=== PATIENT | female | born 1985 | race Caucasian/White ===

== ENCOUNTER 2019-07-09 10:00 | Emergency (ER) | payer BC, SELFPAY ==
--- NOTE | 2019-07-09 10:09 | ED.URI ---
HPI - URI/Sore Throat General Chief Complaint: Upper Respiratory Infection Stated Complaint: cough/congestion/fever Time Seen by Provider: 07/09/19 10:22 Source: patient and RN notes reviewed Mode of arrival: ambulatory Limitations: no limitations History of Present Illness HPI Narrative: 33 of female presents with concern for body aches, fever, cough, chest congestion, headache. Reports fever started yesterday. MD elicited complaint: fever Related Data Allergies Allergy/AdvReac Type Severity Reaction Status Date / Time No Known Allergies Allergy Verified 07/09/19 10:19 Review of Systems Review of Systems: Narrative: CONSTITUTIONAL: Reports malaise, chills, sweats, fever. EYES: Denies visual changes, redness, or discharge. ENT: Reports rhinorrhea. Denies congestion, sinus pain, otalgia and sore throat. CARDIOVASCULAR: Denies chest pain, palpitations, or edema. RESPIRATORY: Reports cough, chest congestion. Denies dyspnea. GASTROINTESTINAL: Denies abdominal pain, nausea, vomiting, diarrhea SKIN: Denies rash or itching. MUSCULOSKELETAL: Reports myalgia. NEUROLOGIC: Reports headache. All systems reviewed & are unremarkable except as noted in HPI and below PMFSH Social History Social History Smoking status: Never smoker Alcohol intake: current Comments At time of signature, agree with nursing past medical, surgical, social and family history. There is no relevant family history pertinent to the presenting complaint Exam Narrative: Exam Narrative: GENERAL: Nontoxic-appearing, well-nourished, and in no acute distress. HEAD: Normocephalic EYES: PERRLA, conjunctivae clear ENT: Nares clear, turbinates erythematous, clear discharge. Mucous membranes moist. TM pearly voss with dull light reflex bilaterally; no tragal tenderness. Oropharynx not erythematous without lesions. Tonsils not enlarged and without exudate, no drooling, no hoarseness, no trismus. NECK: Supple. No lymphadenopathy CHEST: Clear to auscultation, breath sounds equal. No wheezing, rhonchi, rales, or stridor. No respiratory distress, speaks in full sentences. cough noted HEART: Regular rate and rhythm. No murmur heard. Normal peripheral pulses. SKIN: Warm, dry, no rash. NEURO: Alert and oriented x3. PSYCH: Normal mood and affect Course Course Emergency Course: Patient is aware of diagnosis, understands and agrees to treatment plan. Anticipatory guidance given. Patient agrees to follow-up as directed and is aware of reasons to seek care at the emergency department. Portions of this record may have been created with voice recognition software Vital Signs Vital signs: Vital Signs Temperature 101.1 F H 07/09/19 10:15 Pulse Rate 91 07/09/19 10:15 Respiratory Rate 20 07/09/19 10:15 Blood Pressure 126/81 07/09/19 10:15 Pulse Oximetry 99 07/09/19 10:15 Temperature 101.1 F H 07/09/19 10:15 Pulse Rate 91 07/09/19 10:15 Respiratory Rate 20 07/09/19 10:15 Blood Pressure 126/81 07/09/19 10:15 Pulse Oximetry 99 07/09/19 10:15 Reviewed. Patient has been instructed to follow up with her primary care provider within the next week regarding her elevated blood pressure today. MDM - URI/Sore Throat MDM Narrative Medical decision making narrative: Differential diagnosis considered: Strep pharyngitis, allergic rhinitis, upper respiratory tract infection, sinusitis, rhinosinusitis, nasopharyngitis. viral pharyngitis, otitis media, otitis externa, pneumonia, bronchitis, viral cough syndrome, viral syndrome, and influenza. Exam findings show no acute concerns or changes; patient is non-toxic appearing and is in no distress. Patient is appropriate for outpatient treatment and follow-up. Lab Data Labs: Influenza A Screen Negative Reference Range: Negative Influenza B Screen Negative Reference Range: Negative Critical Care Time Critical Care Time Critical Care Time: No Discharge Plan Discharg
[2019-07-09 10:15] VITALS: BP 126/81; PULSE 91; RESP 20; TEMP 38.4; O2SAT 99
== END 2019-07-09 10:40 | disposition home or self-care (01) ==
PROVIDERS: Emergency Provider Nurse Practitioner; PCP Family Medicine
DX: R05 Cough (principal); R50.9 Fever, unspecified; R09.89 Other specified symptoms and signs involving the circulatory and respiratory systems; R51 Headache
CPT/HCPCS: 87804; 99213; G0463

== ENCOUNTER 2019-07-25 11:53 | Emergency (ER) | payer BC, SELFPAY ==
--- NOTE | ~2019-07-25 | XR_ITS ---
EXAMINATION: XR chest 2V DATE: 07/25/2019 12:11 INDICATION: Cough. Shortness of breath. Right back pain. TECHNIQUE: Frontal and lateral views of the chest were obtained. COMPARISON: None. FINDINGS: The chest demonstrates clear lungs without pneumonia, pleural effusion, or pneumothorax. Th e heart size is normal. IMPRESSION: 1. No acute cardiopulmonary disease. Reviewed, dictated and finalized at location A. [facility] [employer]
[2019-07-25 12:02] VITALS: BP 137/94; PULSE 75; RESP 20; TEMP 37.6; O2SAT 100
--- NOTE | 2019-07-25 12:31 | ED.URI ---
HPI - URI/Sore Throat General Chief Complaint: Upper Respiratory Infection Stated Complaint: SOB/chest discomfort Time Seen by Provider: 07/25/19 12:32 Source: patient Mode of arrival: ambulatory Limitations: no limitations History of Present Illness HPI Narrative: Khalida Chairez is a 34 yo female with no PMH who was treated here 2 weeks ago for flu. Given Zofluza , prednisone, codeine cough syrup. He has not gotten significantly better. Complaining of posterior right lower rib pain Related Data Allergies Allergy/AdvReac Type Severity Reaction Status Date / Time No Known Allergies Allergy Verified 07/09/19 10:19 Review of Systems Review of Systems: Narrative: CONSTITUTIONAL: Denies fever, chills, sweats. EYES: Denies visual changes, redness, discharge. ENT: hasrhinorrhea, congestion, sore throat, otalgia. CARDIOVASCULAR:has chest wall pain, palpitations, edema. RESPIRATORY: Denies dyspnea, wheezing, has cough GASTROINTESTINAL: Denies abdominal pain, nausea, vomiting, diarrhea. GENITOURINARY: Denies dysuria, hematuria, abnormal discharge SKIN: Denies rash or itching. NEUROLOGIC: Denies numbness, or focal weakness. PSYCHIATRIC: Denies anxiety or depression. PMFSH Social History Social History Smoking status: Never smoker Alcohol intake: current Gender identity (if verbalized by the patient): Female Comments At time of signature, I agree with nursing past medical, surgical, social and family history. There is no relevant family history pertinent to the presenting complaint. Exam Narrative: Exam Narrative: GENERAL: This is a well-nourished, well-developed patient, in mild distress. HEAD: normocephalic, atraumatic. EYES: Sclera clear/white. Vision is grossly intact. EARS: External ears normal, auditory canals clear and without drainage, TMs normal without perforation. Hearing grossly intact. NOSE: External nose normal with no obvious nasal discharge, nares without redness, has rhinorrhea. THROAT: Mucous membranes moist, posterior pharynx erythema. NECK: Neck supple, non-tender without lymphadenopathy, CARDIOVASCULAR: Regular rate and rhythm without murmurs, gallops, or rubs. RESPIRATORY: Clear to auscultation. Breath sounds equal bilaterally. No wheezes, rales, or rhonchi. GASTROINTESTINAL: Abdomen soft, non-tender, SKIN: warm, intact with no suspicious lesions or rash, good texture and turgor. NEURO: awake, alert, and oriented to person, place and time. There were no obvious focal neurologic abnormalities. Steady gait EXTREMITIES: Normal range of motion. No edema. BACK: Nontender without deformity. Course Course Emergency Course: Positive for flu 2 weeks ago, has continued to take Mucinex, finish prednisone Chest x-ray negative for pneumonia but will start on Z-Jasbir, taper pack of prednisone, Claritin, refill cough syrup Vital Signs Vital signs: Vital Signs Temperature 99.7 F H 07/25/19 12:02 Pulse Rate 75 07/25/19 12:02 Respiratory Rate 20 07/25/19 12:02 Blood Pressure 137/94 H 07/25/19 12:02 Pulse Oximetry 100 07/25/19 12:02 Temperature 99.7 F H 07/25/19 12:02 Pulse Rate 75 07/25/19 12:02 Respiratory Rate 20 07/25/19 12:02 Blood Pressure 137/94 H 07/25/19 12:02 Pulse Oximetry 100 07/25/19 12:02 MDM - URI/Sore Throat Differential Diagnosis Differential diagnosis: Likely upper respiratory infection, sinusitis, viral infection and influenza Discharge Plan Discharge Clinical Impression: Influenza, Cough, Viral infection Patient Disposition: Home, Self-Care Condition: Stable Instructions: Antibiotic Form Prescriptions: New prednisone 5 mg tablets,dose pack See Rx Instructions .ROUTE .COMPLEX Qty: 21 RF: 0 azithromycin [Zithromax Z-Jasbir] 250 mg tablet See Rx Instructions .ROUTE .COMPLEX Qty: 6 RF: 0 ibuprofen 600 mg tablet 600 mg PO Q6H PRN (Reason: pain) Qty: 30 RF: 0 c
[2019-07-25] MEDS: KETOROLAC (*BKC) 60 MG/2 ML VIAL IM (13:06)
== END 2019-07-25 13:44 | disposition home or self-care (01) ==
PROVIDERS: Emergency Provider Nurse Practitioner; PCP Family Medicine
DX: J11.1 Influenza due to unidentified influenza virus with other respiratory manifestations (principal); R05 Cough; B34.9 Viral infection, unspecified
CPT/HCPCS: 71046; 96372; 99213; G0463; J1885

== ENCOUNTER 2019-10-28 00:06 | Outpatient (CLI) | payer OTHER, SELFPAY ==
[2019-10-28 17:43] LABS: SARS-CoV-2 RNA PCR Negative
== END 2019-10-28 00:07 | disposition home or self-care (01) ==
LOC: ANHCOVIDDT 00:06
PROVIDERS: PCP Family Medicine; Visit Provider Surgery Plastic and Reconstructive Surgery
DX: Z01.818 Encounter for other preprocedural examination (principal); Z11.59 Encounter for screening for other viral diseases
CPT/HCPCS: 87635; C9803; U0003

== ENCOUNTER 2019-10-30 01:40 | Day surgery (SDC) | payer OTHER, SELFPAY ==
[2019-10-21 14:58] VITALS: BMI 32.2
[2019-10-30] VITALS (9 sets, daily range): BP systolic 117–142; BP diastolic 73–93; PULSE 55–83; RESP 10–18; TEMP 36.2; O2SAT 93–100
[2019-10-30] MEDS: LACTATED RINGERS 1,000 ML 30 ML IV CONT ×2 (09:35→11:43)
--- NOTE | 2019-10-30 09:35 | WPDANESEPPF ---
Anes - Initial Pre Proc Eval Procedure: Operation Date: 10/30/19 11:00 Proposed Procedures p Bilateral Breast Augmentation With Galaflex - Oh Ferguson MD Date/Time: 10/30/19 09:35 Surgeon: Oh Ferguson MD Pre Op Diagnosis: micromastia Patient Data Age: 34 Gender: F Height: 5 ft Weight: 74.84 kg Allergies Allergy/AdvReac Type Severity Reaction Status Date / Time codeine AdvReac Itching Verified 10/21/19 14:56 Home Medications Medication Instructions Recorded Confirmed Type levocetirizine [Xyzal] 5 mg PO QPM 10/21/19 10/21/19 History docusate sodium 100 mg capsule 100 mg PO DAILY #28 cap 10/27/19 Rx ondansetron HCl 4 mg tablet 4 mg PO Q8H #28 tablet 10/27/19 Rx carisoprodol 350 mg tablet 350 mg PO TID PRN #21 tablet 10/28/19 10/28/19 Rx oxycodone-acetaminophen 5 mg-325 1 tablet PO Q6H PRN #15 tablet 10/28/19 10/28/19 Rx mg tablet carisoprodol 350 mg tablet 350 mg PO TID PRN #21 tablet 10/29/19 10/29/19 Rx oxycodone-acetaminophen 5 mg-325 1 tablet PO Q6H PRN #15 tablet 10/29/19 10/29/19 Rx mg tablet Patient hx anesthesia problems: none Family hx anesthesia problems: none PMFSH Social History Social History Smoking status: Never smoker Alcohol intake: current Gender identity (if verbalized by the patient): Female Anes - Eval Final PreProcedure Day of Procedure 10/30/19 09:35 Patient weight: overweight Heart: regular rate and rhythm Lungs: clear to auscultation Airway: Mallampati scale class 1 Neurological: alert and oriented Last oral intake: >/= 8 hours ASA classification: II Emergent: no Anesthetic plan: proceed Anesthesia type and monitoring: general LMA and standard monitoring Informed Consent: The patient's anesthetic plan and its attendant risks and benefits were discussed with the patient/family/POA. Questions were solicited and answers provided to the satisfaction of the patient/family/POA.
--- NOTE | 2019-10-30 09:49 | WPDHPUPDATE1 ---
History and Physical Update Update Date/Time: 10/30/19 09:49 History and Physical has been reviewed, including an updated exam of the patient. There are NO changes in the patient's condition. Risks, benefits, and alternatives have been discussed and questions answered. Patient agrees to proceed with procedure.
--- NOTE | 2019-10-30 09:49 | PM.PROC ---
Procedure Note - Detailed Date of procedure: 10/30/19 Pre-op diagnosis: micromastia Post-op diagnosis: same Procedure performed: Bilateral breast augmentation with galaflex Description of procedure: She is here today for bilateral breast augmentation. Previously and again today the risks, benefits, alternatives were discussed in extensive detail. I wanted her to be very realistic about the risks involved as well as expectations. We discussed aftercare and what to monitor for. Made sure answered all of her questions to her satisfaction today and consent was obtained. Marked in the preoperative holding area with their verification. The patient was taken to the operating room placed supine on the operating table. Anesthesia was provided by anesthesiology. A surgical time-out was taken. We cleansed the skin and 1% lidocaine and 0.25% Marcaine with epinephrine was used anesthetize as a field block. She was prepped and draped in a standard sterile fashion. Tegaderm nipple Patricio were placed. A 15 blade used to make an incision along the inframammary fold previous incisions. Dissection was continued at 45 degree angle until the chest wall as identified. I elevated above the muscle first in a dual plane 2/3 manner. I incised the pectoralis major along its inferior border and completely released the inferior border leaving the medial border intact. I created a subpectoral pocket in the appropriate dimensions based on our preoperative planning for the implant. I then copiously irrigated with saline solution and verified a strict hemostasis. Galaflex was trimmed and sutured into the IMF / lateral aspect using 2-0 Vicryl. Next the use a triple antibiotic and Betadine containing solution to irrigate the pocket. I washed my gloves with the triple antibiotic and Betadine solution. We washed the implant immediately upon opening it with this solution and only opened it when we needed it. I used implant funnel and no-touch technique. The implant was introduced into the pocket using the funnel. Having verified positioning of the implant this was closed using 2-0 Vicryl followed by 3-0 Monocryl in a running subcuticular 4-0 Monocryl followed by tissue glue. Fluffs, Silvino wrap, and surgical bra were placed. Patient was awoke and taken to PACU without difficulty. All instrument sponge counts were correct at the end of the case. Implants: Bilateral [employer] Inspira SoftTouch Implants 375cc Right: REF# [id number] Left: REF# [id number] Galaflex [id number]. REF# [id number] Surgeon: Oh Ferguson MD Estimated blood loss (mL): 10 Drains: No Packing: No Pathology: none sent Complications: No immediate complications Condition: stable Disposition: PACU
[2019-10-30] MEDS: SCOPOLAMINE 1.5 MG PATCH TRANSDERM (09:50)
[2019-10-30] MEDS: ceFAZolin 2 GM/D5W 50 ML 2 GM/50 ML BAG IVPB (09:55)
[2019-10-30] MEDS: BUPIVACAINE HCL 0.25% PF 30 ML VIAL INFILTRATE (09:57)
[2019-10-30] MEDS: LIDO 1%/EPINEPHRINE 1:100,000 20 ML VIAL 30 ML INFILTRATE (10:42)
[2019-10-30] MEDS: ONDANSETRON INJ 4 MG/2 ML VIAL IV PUSH (12:56)
== END 2019-10-30 14:20 | disposition home or self-care (01) ==
PROVIDERS: PCP Family Medicine; Visit Provider Surgery Plastic and Reconstructive Surgery
PROC: (CPT 19325; principal; 2019-10-30 11:00)
DX: Z41.1 Encounter for cosmetic surgery (principal); N64.82 Hypoplasia of breast
CPT/HCPCS: 19325; 15777 ×2; A9270; J0690; J1100; J1580; J2250; J2405; J2704; J3010; J7120

== ENCOUNTER 2022-06-19 13:20 | Emergency (ER) | payer BC, SELFPAY ==
[2022-06-19 13:39] VITALS: BP 136/95; PULSE 68; RESP 18; TEMP 36.2; O2SAT 99
--- NOTE | 2022-06-19 13:50 | ED.FEMALEGU ---
HPI - Female Genitourinary General Chief complaint: Urogenital-Female Stated complaint: uti complaint Time Seen by Provider: 06/19/22 13:50 Source: patient, RN notes reviewed and old records reviewed Mode of arrival: ambulatory Limitations: no limitations History of Present Illness HPI Narrative: 36-year-old female who presents to [facility] with complaints of suprapubic discomfort. burning with urination frequency, feeling that she can not empty her bladder since about 1:00 a.m. this morning. Patient states she has had past history of UTIs and also for patient denies any nausea vomiting denies any vaginal discharge or any concerns for STD's MD elicited complaint: dysuria Onset (ago): hour(s) (today at 0100) Location of symptoms: suprapubic Related Data Home Medications Medication Instructions Recorded Confirmed sertraline 50 mg tablet 50 mg PO DAILY 06/19/22 06/19/22 Allergies Allergy/AdvReac Type Severity Reaction Status Date / Time codeine AdvReac Mild Itching Verified 06/19/22 13:41 Review of Systems Review of Systems: CONSTITUTIONAL: Denies fever, chills, or sweats. CARDIOVASCULAR: Denies chest pain, palpitations, or edema. RESPIRATORY: Denies cough or dyspnea. GASTROINTESTINAL: Denies abdominal pain, nausea, vomiting, or diarrhea. GENITOURINARY: Reports dysuria, frequency, urgency. Denies flank pain or hematuria. SKIN: Denies rash or itching. MUSCULOSKELETAL: Denies back pain or myalgia. Denies CVA tenderness NEUROLOGIC: Denies headache All systems reviewed & are unremarkable except as noted in HPI and below PMFSH Social History Social History Smoking status: Never smoker Alcohol intake: current Gender identity (if verbalized by the patient): Female Comments At time of signature, agree with nursing past medical, surgical, social and family history. There is no relevant family history pertinent to the presenting complaint Exam Narrative: GENERAL: Well-appearing, well-nourished, and in no acute distress. HEAD: Normocephalic, atraumatic. NECK: Supple.no lymphadenopathy CHEST: Clear to auscultation. No respiratory distress.SAO2 99% on room air HEART: Regular rate and rhythm. No murmur heard. Normal peripheral pulses. ABDOMEN: Soft, nontender, nondistended, normal active bowel sounds. No CVA tenderness EXTREMITIES: Normal range of motion. No edema. SKIN: Warm, dry, no rash. NEURO: No focal deficits. Alert and oriented x3. Course Course Emergency Course: Patient is aware of diagnosis, understands and agrees to treatment plan.? Anticipatory guidance given.? Patient agrees to follow-up as directed and is aware of reasons to seek care at the emergency department. Portions of this record may have been created with voice recognition software Level of Care: Express Care Visit Vital Signs Vital signs: Vital Signs Temperature 36.2 C L 06/19/22 13:39 Pulse Rate 68 06/19/22 13:39 Respiratory Rate 18 06/19/22 13:39 Blood Pressure 136/95 H 06/19/22 13:39 Pulse Oximetry 99 06/19/22 13:39 Oxygen Delivery Room Air 06/19/22 13:39 Temperature 36.2 C L 06/19/22 13:39 Pulse Rate 68 06/19/22 13:39 Respiratory Rate 18 06/19/22 13:39 Blood Pressure 136/95 H 06/19/22 13:39 Pulse Oximetry 99 06/19/22 13:39 Oxygen Delivery Room Air 06/19/22 13:39 MDM - Female Genitourinary MDM Narrative Medical decision making narrative: Exam findings and UA show no acute concerns or changes; patient is non-toxic appearing and is in no distress.? Patient is appropriate for outpatient treatment and follow-up. Differential Diagnosis Differential diagnosis: Likely urinary tract infection, cystitis and other (dysuria) Medical Records Attestation: I reviewed the patient's medical records. Lab Data Attestation: I reviewed the patient's lab results. Lab results narrative: see urine dip results reviewed Labs: Urine Glucose
== END 2022-06-19 14:08 | disposition home or self-care (01) ==
PROVIDERS: Emergency Provider Registered Nurse; PCP Family Medicine
DX: N39.0 Urinary tract infection, site not specified (principal); F41.9 Anxiety disorder, unspecified
CPT/HCPCS: 81003; 87077; 87086; 87186; 99213; G0463